=== PATIENT | male | born 1990 | race Caucasian/White ===

== ENCOUNTER → 2017-05-26 | Day surgery (SDC) | payer BC ==
[2017-05-10 09:27] VITALS: Ht 182.9 cm; Wt 113.6 kg
--- NOTE | 2017-05-25 08:36 | History and Physical: Surg Cnt ---
History & Physical Date May 25, 2017. Chief Complaint tonsillitis History of Present Illness The patient is a 26 year old male with complaints of chronic tonsillitis Additional History Hepatic Disease: No Endocrine Disorder: No Kidney Disease: No Hypertension: No Heart Disease: No Bleeding Tendencies: No Infectious Diseases: No Allergies Coded Allergies: No Known Allergies (Unverified , 05/10/17) Home Medications Scheduled Fluoxetine (Prozac), 40 MG PO Q2D Fluoxetine (Prozac), 20 MG PO Q2D Fluoxetine (Prozac), 40 MG PO Q2D Fluticasone Propionate (Fluticasone Propionate), 1 SPRAY MIRIAM BID Prednisone (Prednisone), 20 MG PO BID Scheduled PRN Ibuprofen Tab (Advil), 200-600 MG PO BID PRN for Pain Lorazepam (Ativan), 0.25 MG PO DAILY PRN for Anxiety Physical Examination Skin: warm/dry, no rash Eyes: normal inspection, EOMI, sclerae normal ENT: normal ENT inspection, pharynx normal Head: normocephalic, atraumatic Neck: supple, no adenopathy, trachea midline Respiratory/Chest: lungs clear, normal breath sounds, no respiratory distress Cardiovascular: regular rate, rhythm, no edema, no murmur Abdomen / GI: normal bowel sounds, non tender Back: normal inspection Extremities: normal inspection, normal range of motion Neurologic/Psych: no motor/sensory deficits, alert, normal reflexes, oriented x 3 Diagnosis chronic tonsillitis Plan of Treatment adenotonsillectomy
[~2017-05-26] VITALS: Ht 182.9 cm; Wt 113.6 kg
[~2017-05-26] MED LIST: ACET325T96 PO; ACETAMINOPHEN/HYDROCODONE ELIX 15 ML/CUP UDP PO PRN; ATROPINE SULFATE 0.1 MG/ML 5ML SYR IV PRN; BUPIVACAINE/EPINEPHRINE 0.5% MPF 1:200,000 10 ML VIAL ONE; DEXAMETHASONE SOD INJ 4 MG/ML VIAL ONE; EpHEDrine SULFATE INJ 50 MG/ML AMP IV PRN; FENTANYL CITRATE INJ 50 MCG/1 ML 2 ML VIAL IV PRN; FENTANYL CITRATE INJ 50 MCG/1 ML 2 ML VIAL ONE; FLNIN NAE; FLUO20CA35 PO; FLUO40CA8 PO; GLYCOPYRROLATE INJ 0.2 MG/ML VIAL ONE; HYDR1SOL10 PO; IBUP-103 PO; LACTATED RINGER'S 1000ML 1,000 ML IV SCH; LIDOCAINE HCL 2% 2 ML VIAL (20MG/ML) ONE; LORA-741 PO; MIDAZOLAM HCL 1 MG/ML 2ML VIAL ONE; NEOSTIGMINE METHYLSULFATE 5 MG/5 ML SYR ONE; ONDANSETRON INJ 2 MG/ML 2 ML VIAL IV PRN; ONDANSETRON INJ 2 MG/ML 2 ML VIAL ONE; PRED20TA PO; PROPOFOL IV EMULSION 10 MG/ML 20 ML VIAL IV ONE; SODIUM CHLORIDE 0.9% 1000ML 1,000 ML IV SCH
--- NOTE | 2017-05-26 06:58 | History & Physical Bridge Note ---
H&P Re-Evaluation Bridge Note: I have examined the patient, reviewed the History & Physical and in the interval since the performance of the History & Physical I have noted the following changes of clinical significance: No changes noted
--- NOTE | 2017-05-26 08:16 | Discharge Instructions-SurgCtr ---
Discharge Instructions Date of Service May 26, 2017. Visit Reason for Visit: Chronic Tonsillitis Discharge Discharge Diagnosis / Problem: same Discharge Goals Goal(s): Improve disease control Activity Recommendations Activity Limitations: per Instructions/Follow-up section Anesthesia . Post Anesthesia Instructions: If you have had General Anesthesia or IV Sedation: * Do not drive today. * Resume driving when surgeon permits. * Do not make important decisions or sign legal documents today. * Call surgeon for: 1. Temperature elevations greater than 101 degrees F. 2. Uncontrollable pain. 3. Excessive bleeding. 4. Persistent nausea and vomiting. 5. Medication intolerance (nausea, vomiting or rash). * For nausea and vomiting use only clear liquids such as: tea, soda, bouillon until nausea subsides, then gradually increase diet as tolerated. * If you have any concerns or questions, call your surgeon's office. If physician is unavailable and it is an emergency, call 911 or go to the nearest emergency room. . Instructions / Follow-Up Instructions / Follow-Up ACTIVITY RECOMMENDATIONS: * During the first few days, activities should be limited. * Stay indoors for several days. * After 48 hours, activity can gradually be increased to normal activity. RETURN TO SCHOOL/WORK: * Return to school or work in one week. * No physical education for two weeks. OVER THE COUNTER MEDICATIONS: * You may use Tylenol * Avoid aspirin or aspirin containing products, e.g. as they may increase bleeding. SPECIAL CARE INSTRUCTIONS: * Avoid coughing or clearing the throat. * Do not use a straw. * A sore throat is expected frequently accompanied by pain radiating to the ears. This is normal. * Expect bad breath until "scabs" are healed. * Notify the doctor if bleeding occurs, vomiting, temperature greater than 101 degrees Fahrenheit. Call or cell phone: . * If bleeding occurs, it is usually in the first 24 hours or after the 5th day. If unable to reach the doctor, go to the nearest Emergency Department. Special Diet: * Fluids are very important and should be encouraged to maintain adequate hydration. * To maintain nutrition, eat soft foods and after 48 hours the consistency of foods can be increased. Examples are jello, soup, pasta, ice cream and mashed foods. FOLLOW UP VISIT: Follow-up visit with Dr. Jason in 2 weeks. Please call to schedule if not already scheduled. Diet Recommendations Home Diet: no limitations Pending Studies Studies pending at discharge: no Medical Emergencies . Who to Call and When: Medical Emergencies: If at any time you feel your situation is an emergency, please call 911 immediately. . Non-Emergent Contact Non-Emergency issues call your: Primary Care Provider . . "Provider Documentation" section prepared by Dorinda Jason. . [place] Drug Monitoring Program Search Results: no issues identified
--- NOTE | 2017-05-26 08:34 | OPERATIVE REPORT ---
DATE OF OPERATION: 05/26/2017 PREOPERATIVE DIAGNOSIS: Chronic tonsillitis. POSTOPERATIVE DIAGNOSIS: Same. PROCEDURE: Adenotonsillectomy (coblation). SURGEON: Dr. Jason. ANESTHESIA: General endotracheal. COMPLICATIONS: None. BLOOD LOSS: 5 mL. HISTORY OF PRESENT ILLNESS: A 26-year-old recurrent chronic tonsillitis with significant tonsillar hypertrophy. OPERATION AND FINDINGS: PROCEDURE: The patient was brought to the operating room and placed in supine position. General endotracheal anesthesia was induced, draped in the usual manner. Mouth gag was placed. Peritonsillar area was injected with 0.5% Sensorcaine, 1:200:000 strength epinephrine. Soft palate retracted using a red Borrego catheter. Tonsillectomy performed using the coblation device coblating out the tonsil from anterior to the posterior pillar and from the superior pole to the inferior pole. Both tonsils were removed in a similar manner. Hemostasis was controlled with the coblation device. Adenoidectomy was performed using the coblation technique and hemostasis controlled using the coblation technique. The patient tolerated the procedure well and was taken to the recovery room in satisfactory condition. I attest to the content of the Intraoperative Record and any orders documented therein. Any exception s are noted below.
[2017-05-26 08:53] VITALS: TEMP 36.7
--- NOTE | 2017-05-26 09:05 | Anesthesia Progress Nt - [facility] ---
Anesthesia Post Op Note Date & Time May 26, 2017 at 09:04 Vital Signs Pain Intensity: 4 Vital Signs Past 12 Hours Date Time Temp Pulse Resp B/P (MAP) Pulse Ox O2 Delivery O2 Flow Rate FiO2 05/26/17 08:53 36.7 61 104/67 (79) 95 Room Air 05/26/17 08:41 36.8 121/67 05/26/17 08:40 64 12 05/26/17 08:40 64 12 95 05/26/17 08:36 115/68 05/26/17 08:35 66 95 05/26/17 08:35 66 05/26/17 08:31 93/76 05/26/17 08:30 73 15 95 05/26/17 08:30 72 15 05/26/17 08:26 128/68 05/26/17 08:25 69 16 98 05/26/17 08:25 68 16 05/26/17 08:22 128/71 05/26/17 08:20 73 16 05/26/17 08:20 73 16 98 05/26/17 08:16 37.4 81 18 132/74 94 Mask 6 05/26/17 08:16 132/74 05/26/17 08:15 83 05/26/17 08:15 85 96 05/26/17 06:42 36.6 70 16 119/69 (86) 97 Room Air Notes Mental Status: alert / awake / arousable, participated in evaluation Pt Amnestic to Procedure: Yes Nausea / Vomiting: adequately controlled Pain: adequately controlled Airway Patency, RR, SpO2: stable & adequate BP & HR: stable & adequate Hydration State: stable & adequate Anesthetic Complications: no major complications apparent
[2017-05-26 09:29] VITALS: BP 120/75; PULSE 64; O2SAT 95
== END | disposition home or self-care (01) ==
LOC: X.SURG 06:33
PROVIDERS: ATTEND Otolaryngology
DX: J03.90 Acute tonsillitis, unspecified (principal)

== ENCOUNTER 2017-06-02 03:05 | Emergency (ER) | payer BC ==
[~2017-06-02] VITALS: Ht 182.9 cm; Wt 111.8 kg
[~2017-06-02 03:05] MED LIST changes: -ACET325T96 PO; -ACETAMINOPHEN/HYDROCODONE ELIX 15 ML/CUP UDP PO PRN; -ATROPINE SULFATE 0.1 MG/ML 5ML SYR IV PRN; -BUPIVACAINE/EPINEPHRINE 0.5% MPF 1:200,000 10 ML VIAL ONE; -DEXAMETHASONE SOD INJ 4 MG/ML VIAL ONE; -EpHEDrine SULFATE INJ 50 MG/ML AMP IV PRN; -FENTANYL CITRATE INJ 50 MCG/1 ML 2 ML VIAL IV PRN; -FENTANYL CITRATE INJ 50 MCG/1 ML 2 ML VIAL ONE; -GLYCOPYRROLATE INJ 0.2 MG/ML VIAL ONE; -IBUP-103 PO; -LACTATED RINGER'S 1000ML 1,000 ML IV SCH; -LIDOCAINE HCL 2% 2 ML VIAL (20MG/ML) ONE; -MIDAZOLAM HCL 1 MG/ML 2ML VIAL ONE; -NEOSTIGMINE METHYLSULFATE 5 MG/5 ML SYR ONE; -ONDANSETRON INJ 2 MG/ML 2 ML VIAL IV PRN; -ONDANSETRON INJ 2 MG/ML 2 ML VIAL ONE; -PRED20TA PO; -PROPOFOL IV EMULSION 10 MG/ML 20 ML VIAL IV ONE; -SODIUM CHLORIDE 0.9% 1000ML 1,000 ML IV SCH
[2017-06-02 03:09] VITALS: TEMP 36.6; Ht 182.9 cm; Wt 111.8 kg
[2017-06-02 03:28] VITALS: O2SAT 95
[2017-06-02 03:34] LABS: BASO % 0.6 %; BASO ABS # 0.04 K/uL (0-0.2); COMPLETE YES; EOS % 2.7 %; HEMATOCRIT 43.8 % (42-52); IG% 0.3 %; LYMPH % 23.7 %; LYMPH ABS # 1.68 K/uL (1.2-3.4); MEAN CELL VOLUME 81.7 fL (80-100); MEAN CORPUSCULAR HEMOGLOBIN 28.7 pg (25-34); MEAN CORPUSCULAR HGB CONC 35.2 g/dl (32-36); MONO % 10.7 %; PLATELET COUNT 247 K/uL (130-400); RED BLOOD COUNT 5.36 M/uL (4.7-6.1); WHITE BLOOD COUNT 7.08 K/uL (4.8-10.8)
[2017-06-02] MEDS ORDERED: FLUO40CA8 PO (03:54)
[2017-06-02] MEDS ORDERED: ACET325T96 PO (03:57)
--- NOTE | 2017-06-02 04:36 | EMERGENCY ROOM VISIT NOTE ---
History Report prepared by Arlene: Everardo Flannery Under the Supervision of: Dr. Jeffery Lara D.O. First contact with patient: 03:13 Chief Complaint: BLEEDING Stated Complaint: MOUTH BLEEDING FROM TONSIL REMOVAL History of Present Illness The patient is a 26 year old male who presents to the Emergency Room with complaints of persistent post-op throat bleeding beginning an hour ago. He had a tonsillectomy one week ago. He had the surgery with Dr. Jason. The patient also complains of fatigue this past week. Source of History: patient Onset: 1 hour ago Position: throat Quality: other (bleeding) Timing: other (persistent) Associated Symptoms: + fatigue Review of Systems See HPI for pertinent positives and negatives. A total of ten systems were reviewed and were otherwise negative. Past Medical & Surgical Medical Problems: (1) No Known Active Medical Problems Surgical Problems: (1) Hx of tonsillectomy Family History No pertinent family history stated. Social History Smoking Status: Never Smoker Marital Status: single Current/Historical Medications Scheduled Fluoxetine (Prozac), 40 MG PO Q2D Fluoxetine (Prozac), 60 MG PO Q2D Fluticasone Propionate (Fluticasone Propionate), 1 SPRAY MIRIAM BID Scheduled PRN Acetaminophen Tab (Tylenol), 650 MG PO Q4H PRN for Pain Hydrocodone-Acetaminophen (Hydrocodone/Acetami 7.5/325MG 15ML), 15 ML PO Q4H PRN Lorazepam (Ativan), 0.25 MG PO BID PRN for Anxiety Allergies Coded Allergies: No Known Allergies (Unverified , 05/26/17) Physical Exam Vital Signs Date Time Temp Pulse Resp B/P (MAP) Pulse Ox O2 Delivery O2 Flow Rate FiO2 06/02/17 05:03 91 18 117/72 96 Room Air 06/02/17 04:00 94 06/02/17 03:28 95 Room Air 06/02/17 03:09 36.6 113 20 118/75 95 Room Air Physical Exam GENERAL: Awake, alert, well-appearing, in no distress HENT: Normocephalic, atraumatic. Clot to the left tonsillar area. No significant active bleeding. EYES: Normal conjunctiva. Sclera non-icteric. NECK: Supple. No nuchal rigidity. FROM. No JVD. RESPIRATORY: Clear to auscultation. CARDIAC: Regular rate, normal rhythm. Extremities warm and well perfused. Pulses equal. ABDOMEN: Soft, non-distended. No tenderness to palpation. No rebound or guarding. No masses. RECTAL: Deferred. MUSCULOSKELETAL: Chest examination reveals no tenderness. The back is symmetrical on inspection without obvious abnormality. There is no CVA tenderness to palpation. No joint edema. LOWER EXTREMITIES: Calves are equal size bilaterally and non-tender. No edema. No discoloration. NEURO: Normal sensorium. No sensory or motor deficits noted. SKIN: No rash or jaundice noted. Medical Decision & Procedures Laboratory Results 06/02/17 03:26 Red Blood Count 5.36, Mean Corpuscular Volume 81.7, Mean Corpuscular Hemoglobin 28.7, Mean Corpuscular Hemoglobin Concent 35.2, Mean Platelet Volume 9.0, Neutrophils (%) (Auto) 62.0, Lymphocytes (%) (Auto) 23.7, Monocytes (%) (Auto) 10.7, Eosinophils (%) (Auto) 2.7, Basophils (%) (Auto) 0.6, Neutrophils # (Auto ) 4.39, Lymphocytes # (Auto) 1.68, Monocytes # (Auto) 0.76, Eosinophils # (Auto ) 0.19, Basophils # (Auto) 0.04 Test 06/02/17 03:26 06/02/17 04:24 White Blood Count 7.08 K/uL (4.8-10.8) Red Blood Count 5.36 M/uL (4.7-6.1) Hemoglobin 15.4 g/dL (14.0-18.0) Hematocrit 43.8 % (42-52) Mean Corpuscular Volume 81.7 fL (80-100) Mean Corpuscular Hemoglobin 28.7 pg (25-34) Mean Corpuscular Hemoglobin Concent 35.2 g/dl (32-36) Platelet Count 247 K/uL (130-400) Mean Platelet Volume 9.0 fL (7.4-10.4) Neutrophils (%) (Auto) 62.0 % Lymphocytes (%) (Auto) 23.7 % Monocytes (%) (Auto) 10.7 % Eosinophils (%) (Auto) 2.7 % Basophils (%) (Auto) 0.6 % Neutrophils # (Auto) 4.39 K/uL (1.4-6.5) Lymphocytes # (Auto) 1.68 K/uL (1.2-3.4) Monocytes # (Auto) 0.76 K/uL (0.11-0.59) Eosinophils # (Auto) 0.19 K/uL (0-0.5) Basophils # (Auto) 0.04 K/uL (0-0.2) RDW Standard Deviation 37.8 fL (36.4-46.3) RDW Coefficient of Variation 12.6 % (11.5-14.5) Immature Granulocyte % (Auto) 0.3 % Immature Granulocyte # (Auto) 0.02 K/uL (0.00-0.02) Prothrombin Time 11.3 SECONDS (9.0-12.0) Prothromb Time International Ratio 1.1 (0.9-1.1) Activated Partial Thromboplast Time 28.0 SECONDS (21.0-31.0) Partial Thromboplastin Ratio 1.1 Laboratory results reviewed by me ED Course 0314: The patient was evaluated in room B4B. A complete history and physical exam was performed. 0400: I checked in on the patient. He has no further bleeding. 0510: I reevaluated the patient. Discussed results and discharge instructions: he verbalized understanding and agreement. The patient is ready for discharge. Medical Decision Differential diagnoses include but are not limited to; post op bleeding, post op pain, and anemia. Patient received icewater gargle for over 2 hours and remained stable without any further active bleeding reexamination at 5:13 AM the patient has no posterior pharynx bleeding at this time. Patient's airway is also intact. The case was discussed with Dr. Jason from ear nose and throat he's got a stable hemoglobin the patient can follow-up Medication Reconcilliation Current Medication List: was personally reviewed by me Blood Pressure Screening Patient's blood pressure: Normal blood pressure Blood pressure disposition: Did not require urgent referral Consults Time Called: [phone] Consulting Physician: Dr. Jason -ENT Returned Call: [phone] Discussed the patient's case. Dr. Jason feels that the patient would be safe for discharge with outpatient follow up. Impression Primary Impression: Post-op bleeding Additional Impression: Hx of tonsillectomy Scribe Attestation The scribe's documentation has been prepared under my direction and personally reviewed by me in its entirety. I confirm that the note above accurately reflects all work, treatment, procedures, and medical decision making performed by me. Departure Information Dispostion Home / Self-Care Referrals No Doctor, Assigned (PCP) Patient Instructions ED Tonsillectomy Post Op Bleeding, My [facility] Problem Qualifiers
[2017-06-02 04:41] LABS: INR 1.1 (0.9-1.1); PARTIAL THROMBOPLASTIN RATIO 1.1; PROTHROMBIN TIME (PATIENT) 11.3 SECONDS (9.0-12.0)
[2017-06-02 05:03] VITALS: BP 117/72; PULSE 91; O2SAT 96
== END 2017-06-02 05:25 | disposition home or self-care (01) ==
LOC: C.EDB 03:06
DX: J95.830 Postprocedural hemorrhage of a respiratory system organ or structure following a respiratory system procedure (principal); Z79.899 Other long term (current) drug therapy